=== PATIENT | female | born 1955 | race Caucasian/White ===

== ENCOUNTER 2017-06-06 07:24 | Emergency (ER) | payer MEDICAID ==
[2017-06-06] MEDS: ACETAMINOPHEN 500 MG TAB PO (09:32)
== END 2017-06-06 13:32 | disposition home or self-care (01) ==
LOC: FTE 07:24
DX: R05 Cough (principal); R51 Headache; R50.9 Fever, unspecified; J02.9 Acute pharyngitis, unspecified; I10 Essential (primary) hypertension; E11.9 Type 2 diabetes mellitus without complications
CPT/HCPCS: 99284; Z7502

== ENCOUNTER 2018-01-23 08:27 | Emergency (ER) | payer MEDICAID ==
[2018-01-23] MEDS: KETOROLAC 30 MG INJ IM (08:57)
== END 2018-01-23 09:54 | disposition home or self-care (01) ==
LOC: FTE 08:27
DX: M25.561 Pain in right knee (principal); I10 Essential (primary) hypertension; E11.9 Type 2 diabetes mellitus without complications
CPT/HCPCS: 73562; 96372; 99284-25